=== PATIENT | female | born 1950 | race American Indian/Alaskan Native ===

== ENCOUNTER 2017-03-16 17:57 | Emergency (ER) | payer MEDICARE ==
[2017-03-16 18:12] VITALS: BP 149/74
[2017-03-16] MEDS ORDERED: TYLENOL PO ONE (18:29)
--- NOTE | 2017-03-16 18:29 | Emergency Department Report ---
Chief Complaint: Neck Pain/Injury Stated Complaint: NECK PAIN Time Seen by Provider: 03/16/17 18:27 - HPI History of Present Illness: Neck pain for 2 days to left lateral neck. Shooting pain and possible worse w / movement, thinks she may have slept wrong but started hurting worse after she fell on it., no focal neuro c/o, no visual or speech c/o, no fever., no n/v. - Exam Vital Signs: Vital Signs 03/16/17 18:09 Temperature 98 F Pulse Rate 97 H Respiratory 18 Rate Blood Pressure 149/74 O2 Sat by Pulse 98 Oximetry Physical Exam: Afebrile awake and alert and oriented 3 pain to left lateral neck ?worse with movement no midline pain or tenderness question of tenderness to left temporal area, collar placed given fall, ct/labs ordered. MSE screening note: Focused history and physical exam performed. Due to findings the following was ordered: Patient to main ED for further evaluation of neck pain possible headache left facial pain. ED Disposition for MSE Condition: Stable Referrals: PRIMARY CARE, [Primary Care Provider] - 3-5 Days
[2017-03-16 18:47] LABS: Basophils % (Auto) 1.4 % (0.0-1.8); Eosinophils % (Auto) 1.9 % (0.0-4.3); Hematocrit 42.8 % (30.3-42.9); Mean Corpuscular HGB Conc 33 % (30-34); Mean Corpuscular Hemoglobin 28 pg (28-32); Mean Corpuscular Volume 84 fl (79-97); Platelet Count 312 K/mm3 (140-440); Red Cell Distribution Width 13.1 % (13.2-15.2); White Blood Count 8.6 K/mm3 (4.5-11.0)
[2017-03-16 19:07] LABS: Alanine Aminotransferase 16 units/L (7-56); Albumin 4.5 g/dL (3.9-5); Albumin/Globulin Ratio 1.6 %; Alkaline Phosphatase 71 units/L (35-129); Anion Gap 17 mmol/L; BUN/Creatinine Ratio 19; Blood Urea Nitrogen 17 mg/dL (7-17); Carbon Dioxide 32 mmol/L (22-30); Glucose 169 mg/dL (65-100); Potassium 3.8 mmol/L (3.6-5.0); Sodium 142 mmol/L (137-145); Total Protein 7.3 g/dL (6.3-8.2)
[2017-03-16 19:10] LABS: Erythrocyte Sedimentation Rate 13 mm/Hr (0-20)
--- NOTE | 2017-03-16 19:20 | Cat Scan Report ---
FINAL REPORT PROCEDURE: CT head without contrast. TECHNIQUE: Computerized tomography of the head was performed without contrast material. HISTORY: Patient fell, head injury. COMPARISON: No prior studies are available for comparison. FINDINGS: The ventricles are normal in size. There may be a subtle old lacunar infarct in the right external capsule. The connelly matter and white matter are otherwise normal. There are no mass lesions. There is no intracranial hemorrhage. There are no signs of acute infarction. The calvarium appears intact. The mastoid air cells are clear. There is mucosal thickening in both maxillary sinuses. There may be an old left orbital fracture. IMPRESSION: No evidence of acute disease.
--- NOTE | 2017-03-16 19:35 | Cat Scan Report ---
FINAL REPORT PROCEDURE: CT cervical spine without contrast. TECHNIQUE: Computerized tomography of the cervical spine was performed from the skull base to T1 without contrast material. HISTORY: Neck injury, neck pain. COMPARISON: No prior studies are available for comparison. FINDINGS: The cervical vertebrae have normal height and alignment. There are no fractures. There is no subluxation. There is degenerative disc space narrowing throughout the cervical spine. There are small anterior and posterior vertebral body osteophytes. The spinal canal appears adequately patent. There is osteoarthritis involving many of the facet joints. There is moderate bilateral neural foraminal narrowing at C3-4. There is mild bilateral neural foraminal narrowing at C4-5. IMPRESSION: Degenerative disease as described. No evidence of acute cervical spine injury.
--- NOTE | 2017-03-16 20:24 | Emergency Department Report ---
ED Neck Pain HPI Chief Complaint: Neck Pain/Injury Stated Complaint: NECK PAIN Time Seen by Provider: 03/16/17 18:27 Duration: 2 Days Neck Pain Location: Lateral Neck Severity: severe Mechanism: Fall (fell last night from rolling chair) Symptoms: Yes Pain with Movement, Yes Previous History (neck pain for years), No Radiation to Left Upper Ext, No Radiation to Right Upper Ext, No Numbness, No Weakness Other History: This is a 66 y.o. female, presents with neck pain and headache x 2 days. Patient states she fell from a rolling chair last night. She was reaching to answer the phone and fell from the chair. States she feel like her head is about to explode and the pain is coming from the right side of her neck going up to the top of her head. It is consistent, dull, aching pain. Pain is 10 /10 on pain scale. Denies visual change, chest pain, wheezing, and . History of COPD on 2L home oxygen. ED Review of Systems ROS: Stated complaint: NECK PAIN Other details as noted in HPI Constitutional: no symptoms reported, see HPI. denies: chills, diaphoresis, fever, malaise, weakness ENT: as per HPI. denies: ear pain, throat pain, dental pain, hearing loss, epistaxis, congestion Respiratory: no symptoms reported, see HPI, SOB with exertion. denies: cough, orthopnea, shortness of breath, SOB at rest, stridor, wheezing Cardiovascular: as per HPI. denies: chest pain, palpitations, dyspnea on exertion, orthopnea, edema, syncope, paroxysmal nocturnal dyspnea Neurological: as per HPI, headache. denies: weakness, numbness, paresthesias, confusion, abnormal gait, vertigo Psychiatric: as per HPI. denies: anxiety, depression, auditory hallucinations, visual hallucinations, homicidal thoughts, suicidal thoughts ED Past Medical Hx - Past Medical History Hx Hypertension: Yes Hx Diabetes: Yes Hx COPD: Yes (ON HOME 02) - Social History Smoking Status: Never Smoker Substance Use Type: None - Medications Home Medications: Home Medications Medication Instructions Recorded Confirmed Last Taken Type Ibuprofen 800 mg PO Q6HR PRN 7 Days #28 03/16/17 Unknown Rx tablet Prednisone [predniSONE 5 mg (6-Day 5 mg PO .TAPER #1 tab.ds.pk 03/16/17 Unknown Rx Pack, 21 Tabs)] tiZANidine [Zanaflex] 4 mg PO TID 10 Days #30 tablet 03/16/17 Unknown Rx Neck Pain Exam - Exam General: Vital signs noted. No distress. Alert and acting appropriately. HEENT: No Facial Pain, No Scalp Tenderness, No Contusion, No Abrasion, No Laceration Neck Pain: Yes Right Paraspinal Tenderness, Yes Left Paraspinal Tenderness, Yes Pain with Rotation Right (30 ), Yes Pain with Rotation Left (not tolerated), Yes Pain with Extension (not tolerated), Yes Pain with Flexion (30), Yes pain with R Lateral Flexion, Yes Pain with L Lateral Flexion, No Midline Tenderness, No Right Trapezius Tenderness, No Left Trapezius Tenderness Chest: No Clear Lung Sounds (rhonchi on RML), No Pain with Respirations Heart: Yes Regular, No Murmur Back: No Thoracic Tenderness, No Lumbar Tenderness Neuro: Yes Normal Reflexes, No Numbness, No Weakness, No Radicular Deficits ED Course Vital Signs 03/16/17 03/16/17 18:09 18:45 Temperature 98 F Pulse Rate 97 H Respiratory 18 20 Rate Blood Pressure 149/74 O2 Sat by Pulse 98 Oximetry ED Medical Decision Making - Lab Data Result diagrams: 03/16/17 18:37 03/16/17 18:37 - Radiology Data Radiology results: image reviewed FINDINGS: The ventricles are normal in size. There may be a subtle old lacunar infarct in the right external capsule. The connelly matter and white matter are otherwise normal. There are no mass lesions. There is no intracranial hemorrhage. There are no signs of acute infarction. The calvarium appears intact. The mastoid air cells are clear. There is mucosal thickening in both maxillary sinuses. There may be an old left orbital fracture. IMPRESSION: No evidence of acute disease. FINDINGS: The cervical vertebrae have normal height and alignment. There are no fractures. There is no subluxation. There is degenerative disc space narrowing throughout the cervical spine. There are small anterior and posterior vertebral body osteophytes. The spinal canal appears adequately patent. There is osteoarthritis involving many of the facet joints. There is moderate bilateral neural foraminal narrowing at C3-4. There is mild bilateral neural foraminal narrowing at C4-5. IMPRESSION: Degenerative disease as described. No evidence of acute cervical spine injury. Critical care attestation.: If time is entered above; I have spent that time in minutes in the direct care of this critically ill patient, excluding procedure time. ED Disposition Clinical Impression: Degenerative disc disease, cervical Neck muscle strain Qualifiers: Encounter type: initial encounter Qualified Code(s): S16.1XXA - Strain of muscle, fascia and tendon at neck level, initial encounter Disposition: TO HOME OR SELFCARE Is pt being admited?: No Does the pt Need Aspirin: No Condition: Stable Instructions: Cervical Spine Strain (ED), Cervical Radiculopathy (ED) Additional Instructions: Avoid using soft collar, may prolong immobilization and slow healing. Perform rotational exercises 10 times per hour. Prescriptions: Ibuprofen 800 mg PO Q6HR PRN 7 Days #28 tablet PRN Reason: Pain Prednisone [predniSONE 5 mg (6-Day Pack, 21 Tabs)] 5 mg PO .TAPER #1 tab.ds.pk tiZANidine [Zanaflex] 4 mg PO TID 10 Days #30 tablet Referrals: PRIMARY CARE, [Primary Care Provider] - 3-5 Days Time of Disposition: 21:36 Print Language: DANISH
[2017-03-16] MEDS ORDERED: TORADOL IM ONE (21:05)
[2017-03-16] MEDS ORDERED: PHENERGAN PO ONE (21:05)
== END 2017-03-16 21:43 | disposition home or self-care (01) ==
LOC: ED 17:57
DX: S16.1XXA Strain of muscle, fascia and tendon at neck level, initial encounter (principal); M50.30 Other cervical disc degeneration, unspecified cervical region; I10 Essential (primary) hypertension; E11.9 Type 2 diabetes mellitus without complications; J44.9 Chronic obstructive pulmonary disease, unspecified; Z88.0 Allergy status to penicillin; W07.XXXA Fall from chair, initial encounter; Y93.89 Activity, other specified; Y92.89 Other specified places as the place of occurrence of the external cause; Y99.8 Other external cause status
CPT/HCPCS: 36415; 70450; 72125; 80053; 85025; 85652; 96372; 99284; J1885; Q0169

== ENCOUNTER 2020-07-05 19:34 | Observation (INO) | payer MEDICARE ==
[2020-07-05] MEDS ORDERED: methylPREDNISolone Sod Succinate 125 MG/2 ML INJ IV ONE (20:33)
[2020-07-05] MEDS ORDERED: MAGNESIUM SULFATE 2 GM/50 ML BAG IV ONE (20:33)
[2020-07-05] MEDS ORDERED: IPRATROPIUM 0.02% NEBU 2.5 ML IH ONE (20:33)
[2020-07-05] MEDS ORDERED: ALBUTEROL 2.5 MG/3 ML NEBU IH ONE (20:33)
--- NOTE | 2020-07-05 20:39 | Emergency Department Report ---
ED Shortness of Breath HPI - General Chief Complaint: Dyspnea/Respdistress Stated Complaint: RESPIRATORY DISTRESS Time Seen by Provider: 07/05/20 20:31 Source: patient, EMS Mode of arrival: Stretcher Limitations: No Limitations - History of Present Illness Initial Comments: Patient is a 70-year-old female that presents emergency room with complaints of shortness of breath and difficulty breathing. Patient states her symptoms started a week ago. Patient states her symptoms are worsening. Patient states she has been treating her symptoms at home with increased nebulizer use and increased oxygen. They states she is normally on 2 L and she is requiring 6 and 7 L in order to maintain a sat above 88. Patient denies chest pain. Patient denies fever or chills. Patient complains of dry cough. Patient states her symptoms are better with rest and worse with exertion. Patient denies recent travel. Patient denies recent international travel. Patient denies exposure to the novel coronavirus. Patient denies sick contacts. Patient denies fever and chills. Patient denies loss of smell. patient denies diarrhea. Patient denies coming in contact with anybody with symptoms of the novel coronavirus. MD Complaint: shortness of breath, cough -: Sudden Severity: severe Consistency: constant Improves With: rest Worsens With: exertion Known History Of: COPD Associated Symptoms: cough Treatments Prior to Arrival: oxygen, bronchodilator - Related Data Home Oxygen Therapy: Yes Home Oxygen Amount: 2 Liters Previous Rx's Medication Instructions Recorded Last Taken Type Ibuprofen [Ibuprofen 800] 800 mg PO Q6HR PRN 7 Days #28 03/16/17 Unknown Rx tablet Prednisone [predniSONE 5 mg (6-Day 5 mg PO .TAPER #1 tab.ds.pk 03/16/17 Unknown Rx Pack, 21 Tabs)] tiZANidine [Zanaflex 4mg TAB] 4 mg PO TID 10 Days #30 tablet 03/16/17 Unknown Rx Allergies Allergy/AdvReac Type Severity Reaction Status Date / Time Penicillins Allergy Swelling Verified 03/16/17 18:09 ED Review of Systems ROS: Stated complaint: RESPIRATORY DISTRESS Other details as noted in HPI Constitutional: denies: chills, fever Eyes: denies: eye pain, eye discharge, vision change ENT: denies: ear pain, throat pain Respiratory: see HPI, cough, shortness of breath. denies: wheezing Cardiovascular: denies: chest pain, palpitations Endocrine: no symptoms reported Gastrointestinal: denies: abdominal pain, nausea, diarrhea Genitourinary: denies: urgency, dysuria, discharge Musculoskeletal: denies: back pain, joint swelling, arthralgia Skin: denies: rash, lesions Neurological: denies: headache, weakness, paresthesias Psychiatric: denies: anxiety, depression Hematological/Lymphatic: denies: easy bleeding, easy bruising ED Past Medical Hx - Past Medical History Previous Medical History?: Yes Hx Hypertension: Yes Hx Diabetes: Yes Hx COPD: Yes (ON HOME 02) - Surgical History Past Surgical History?: No - Family History Family history: no significant - Social History Smoking Status: Never Smoker Substance Use Type: None - Medications Home Medications: Home Medications Medication Instructions Recorded Confirmed Last Taken Type Ibuprofen [Ibuprofen 800] 800 mg PO Q6HR PRN 7 Days #28 03/16/17 Unknown Rx tablet Prednisone [predniSONE 5 mg (6-Day 5 mg PO .TAPER #1 tab.ds.pk 03/16/17 Unknown Rx Pack, 21 Tabs)] tiZANidine [Zanaflex 4mg TAB] 4 mg PO TID 10 Days #30 tablet 03/16/17 Unknown Rx ED Physical Exam - General Limitations: No Limitations General appearance: alert, in no apparent distress - Head Head exam: Present: atraumatic, normocephalic - Eye Eye exam: Present: normal appearance - ENT ENT exam: Present: mucous membranes moist - Neck Neck exam: Present: normal inspection - Respiratory Respiratory exam: Present: respiratory distress, wheezes, accessory muscle use - Cardiovascular Cardiovascular Exam: Present: regular rate, normal rhythm. Absent: systolic murmur, diastolic murmur, rubs, gallop - GI/Abdominal GI/Abdominal exam: Present: soft, normal bowel sounds - Extremities Exam Extremities exam: Present: normal inspection - Back Exam Back exam: Present: normal inspection - Neurological Exam Neurological exam: Present: alert, oriented X3 - Psychiatric Psychiatric exam: Present: normal affect, normal mood - Skin Skin exam: Present: warm, dry, intact, normal color. Absent: rash ED Course Vital Signs 07/05/20 07/05/20 21:20 21:59 Pulse Rate 102 H Pulse Rate [ 105 H Bilateral] Respiratory 20 Rate Respiratory 20 Rate [Bilateral ] Blood Pressure 132/65 [Left] O2 Sat by Pulse 95 Oximetry - Reevaluation(s) Reevaluation #1: Patient was on 15 L of oxygen. Patient is currently on 5 L. Patient states he is feeling a little bit better. 07/05/20 21:35 Reevaluation #2: I discussed all results with patient. I discussed plan of care with patient. Patient agrees with plan of care and admission. Patient to be admitted to the hospitalist service. 07/05/20 22:15 - Consultations Consultation #1: Hospitalist consulted for admission. Hospitalist to admit patient. 07/05/20 22:15 ED Medical Decision Making - Lab Data Result diagrams: 07/05/20 20:38 07/05/20 20:38 - Radiology Data Radiology results: report reviewed, image reviewed interpreted by me: Chest x-ray: No pneumonia, no pneumothorax, no foreign body, no osseous findings, no acute findings CHEST 1 VIEW INDICATION / CLINICAL INFORMATION: Dyspnea. FINDINGS: SUPPORT DEVICES: None. HEART / MEDIASTINUM: No significant abnormality. LUNGS / PLEURA: No significant pulmonary or pleural abnormality. No pneumothorax. ADDITIONAL FINDINGS: No significant additional findings. IMPRESSION: 1. No acute findings. - Medical Decision Making Patient is a 70-year-old female that presents emergency room with complaints of worsening shortness of breath and COPD exacerbation and increased need of oxygen use. Patient found to have COPD exacerbation and respiratory failure. Patient's respiratory acute on chronic. Patient has an increased oxygen requirement. Patient found to have respiratory distress and increased work of breathing and wheezing. Patient given duo nebs, Solu-Medrol and magnesium. Patient responded well to treatment. Patient's work to breathe improved. Patient's oxygen need decreased. Patient still requires more than her normal amount of oxygen. Patient given azithromycin for the antibiotic coverage. Patient had labs done which were essentially unremarkable except for mild elevation of WBC. Patient admitted to the hospital service for further evaluation and treatment. Critical care time documented due to the multiple reassessments, prolonged time at the bedside, interpretation of diagnostics and labs. - Differential Diagnosis COPD exacerbation, hypoxia, respiratory failure, Critical Care Time: Yes Critical care time in (mins) excluding proc time.: 35 Critical care attestation.: If time is entered above; I have spent that time in minutes in the direct care of this critically ill patient, excluding procedure time. Critical Care Time: 35 minutes ED Disposition Clinical Impression: COPD exacerbation, Shortness of breath Respiratory failure Qualifiers: Chronicity: acute on chronic Respiratory failure complication: hypoxia Qualif ied Code(s): J96.21 - Acute and chronic respiratory failure with hypoxia Disposition: DC-09 OP ADMIT IP TO THIS HOSP Is pt being admited?: Yes Does the pt Need Aspirin: No Condition: Critical Instructions: Chronic Obstructive Pulmonary Disease (ED) Time of Disposition: 22:17
[2020-07-05 20:49] LABS: Basophils # (Auto) 0.1 K/mm3 (0.0-0.1); Eosinophils # (Auto) 0.3 K/mm3 (0.0-0.4); Eosinophils % (Auto) 2.2 % (0.0-4.3); Hematocrit 40.8 % (30.3-42.9); Hemoglobin 13.7 gm/dl (10.1-14.3); Lymphocytes # (Auto) 2.5 K/mm3 (1.2-5.4); Lymphocytes % (Auto) 18.8 % (13.4-35.0); Mean Corpuscular HGB Conc 34 % (30-34); Mean Corpuscular Volume 86 fl (79-97); Monocytes # (Auto) 0.6 K/mm3 (0.0-0.8); Monocytes % (Auto) 4.8 % (0.0-7.3); Platelet Count 333 K/mm3 (140-440); Red Blood Count 4.77 M/mm3 (3.65-5.03); Red Cell Distribution Width 13.7 % (13.2-15.2)
--- NOTE | 2020-07-05 20:53 | XRay Report ---
CHEST 1 VIEW INDICATION / CLINICAL INFORMATION: Dyspnea. FINDINGS: SUPPORT DEVICES: None. HEART / MEDIASTINUM: No significant abnormality. LUNGS / PLEURA: No significant pulmonary or pleural abnormality. No pneumothorax. ADDITIONAL FINDINGS: No significant additional findings. IMPRESSION: 1. No acute findings. Signer Name: Diaz Shanks MD Signed: 07/05/2020 8:48 PM Workstation Name: [id number]
[2020-07-05 21:15] LABS: Alanine Aminotransferase 22 units/L (7-56); Albumin 4.5 g/dL (3.9-5); BUN/Creatinine Ratio 17; Blood Urea Nitrogen 17 mg/dL (7-17); Calcium 9.2 mg/dL (8.4-10.2); Hemolysis Index 24
[2020-07-05] MEDS ORDERED: AZITHROMYCIN/NS 500 MG/250 ML 500 MG/250 ML BAG IV ONE (21:57)
[2020-07-05] MEDS ORDERED: ONDANSETRON 4 MG/2 ML INJ IV PRN (22:32)
[2020-07-05] MEDS ORDERED: ACETAMINOPHEN 325 MG TAB PO PRN (22:32)
[2020-07-05] MEDS ORDERED: MAGNESIUM HYDROXIDE (MOM) ORAL LIQD UDC PO PRN (22:32)
[2020-07-05] MEDS ORDERED: DEXTROSE 50% IN WATER (25GM) 50 ML SYRINGE IV PRN (22:32)
[2020-07-05] MEDS ORDERED: MORPHINE 2 MG/1 ML INJ IV PRN (22:32)
--- NOTE | 2020-07-05 22:45 | History and Physical Report ---
History of Present Illness Date of examination: 07/05/20 Date of admission: 07/05/20 22:17 Chief complaint: 07/05/2020 History of present illness: 70-year-old female with known history of COPD presenting to the emergency room today complaining of shortness of breath. Symptoms were said to have started about a week ago and has gotten worse today. She has been using an nebulizing treatments and inhalers more frequently at home. Patient is on oxygen 2 L at home and she has had increased oxygen requirement about 6 L lately. Oxygen saturation is said to be in the upper 80s. Patient denies any fever or chills, no chest pain or shortness of breath, no headache or dizziness, no diaphoresis. Patient has had some cough which is nonproductive. She denies any sick contacts and no recent travel. She denies any contact with any one daily COVID-19. Work-up in the emergency room today including labs and chest x-ray has been unremarkable except for mild leukocytosis. Patient has had nebulizing treatments and IV steroids with some improvement. Past History Past Medical History: COPD, diabetes, hypertension Past Surgical History: No surgical history Social history: smoking (Former Smoker) Family history: no significant family history Medications and Allergies Allergies Allergy/AdvReac Type Severity Reaction Status Date / Time Penicillins Allergy Swelling Verified 03/16/17 18:09 Home Medications Medication Instructions Recorded Confirmed Last Taken Type Ibuprofen [Ibuprofen 800] 800 mg PO Q6HR PRN 7 Days #28 03/16/17 Unknown Rx tablet Prednisone [predniSONE 5 mg (6-Day 5 mg PO .TAPER #1 tab.ds.pk 03/16/17 Unknown Rx Pack, 21 Tabs)] tiZANidine [Zanaflex 4mg TAB] 4 mg PO TID 10 Days #30 tablet 03/16/17 Unknown Rx Active Meds: Active Medications Azithromycin (Zithromax/Ns) 500 mg in 250 mls @ 250 mls/hr IV ONCE ONE; Protocol Stop: 07/05/20 22:56 Review of Systems Constitutional: no fever, no chills Ears, nose, mouth and throat: no nasal congestion, no sore throat Cardiovascular: no chest pain, no palpitations Respiratory: shortness of breath, no cough Gastrointestinal: no abdominal pain, no nausea, no vomiting, no diarrhea Genitourinary Female: no pelvic pain, no flank pain, no dysuria, no hematuria Musculoskeletal: no neck pain, no low back pain Integumentary: no rash, no pruritis Neurological: no headaches, no confusion Psychiatric: no anxiety, no depression Exam - Constitutional Vitals: Temp Pulse Resp BP Pulse Ox 102 H 20 132/65 95 07/05/20 21:59 07/05/20 21:59 07/05/20 21:59 07/05/20 21:59 General appearance: Present: no acute distress, well-nourished - EENT Eyes: Present: PERRL, EOM intact. Absent: scleral icterus ENT: hearing intact, clear oral mucosa, dentition normal - Neck Neck: Present: supple, normal ROM - Respiratory Respiratory effort: labored Respiratory: bilateral: wheezing (Few scattered wheezes bilaterally) - Cardiovascular Rhythm: regular Heart Sounds: Present: S1 & S2. Absent: systolic murmur, diastolic murmur, rub - Extremities Extremities: no ischemia, pulses intact, pulses symmetrical, No edema, normal temperature, normal color, Full ROM Peripheral Pulses: within normal limits - Abdominal General gastrointestinal: Present: soft, non-tender, non-distended, normal bowel sounds. Absent: mass - Integumentary Integumentary: Present: clear, warm, dry. Absent: rash - Musculoskeletal Musculoskeletal: strength equal bilaterally - Psychiatric Psychiatric: appropriate mood/affect, intact judgment & insight, memory intact, cooperative - Neurologic Neurologic: CNII-XII intact, no focal deficits, moves all extremities Results - Labs CBC & Chem 7: 07/06/20 04:18 07/05/20 20:38 Labs: Abnormal lab results 07/05/20 07/05/20 Range/Units 20:38 20:38 WBC 13.3 H (4.5-11.0) K/mm3 Seg Neutrophils % 73.2 H (40.0-70.0) % Seg Neutrophils # 9.8 H (1.8-7.7) K/mm3 Glucose 275 H (65-100) mg/dL Assessment and Plan - Patient Problems (1) COPD exacerbation Current Visit: Yes Status: Acute Plan to address problem: Patient commenced on nebulizing treatments and IV steroid. Will also place on oxygen to keep O2 saturation greater or equal to 92%. (2) Respiratory failure Current Visit: Yes Status: Acute Qualifiers: Chronicity: acute on chronic Respiratory failure complication: hypoxia Qualified Code(s): J96.21 - Acute and chronic respiratory failure with hypoxia Plan to address problem: Secondary to COPD exacerbation. We will place consult to pulmonology for evaluation. (3) Diabetes mellitus Current Visit: Yes Status: Acute Plan to address problem: We will monitor Accu-Cheks closely closely. (4) DVT prophylaxis Current Visit: Yes Status: Acute Plan to address problem: Patient placed on subcutaneous heparin. (5) Full code status Current Visit: Yes Status: Acute Plan to address problem: Patient is full code.
[2020-07-06] MEDS: INSULIN LISPRO 100 UNIT/ML SUB-Q SCH ×3 (03:38→12:18)
[2020-07-06 05:27] LABS: Hematocrit 38.3 % (30.3-42.9); Hemoglobin 12.8 gm/dl (10.1-14.3); Mean Corpuscular HGB Conc 34 % (30-34); Mean Corpuscular Volume 84 fl (79-97); Platelet Count 275 K/mm3 (140-440); Red Blood Count 4.55 M/mm3 (3.65-5.03); Red Cell Distribution Width 13.4 % (13.2-15.2)
[2020-07-06 05:30] LABS: Basophils % (Auto) 0.2 % (0.0-1.8); Lymphocytes # (Auto) 0.8 K/mm3 (1.2-5.4); Lymphocytes % (Auto) 5.8 % (13.4-35.0); Monocytes # (Auto) 0.1 K/mm3 (0.0-0.8); Monocytes % (Auto) 0.7 % (0.0-7.3)
[2020-07-06] MEDS: IPRATROPIUM/ALBUTEROL SULFATE 3 ML AMPUL.NEB IH SCH ×4 (05:40→12:27)
[2020-07-06] MEDS ORDERED: HEPARIN 5,000 UNIT/1 ML VIAL SUB-Q SCH (06:00)
[2020-07-06] MEDS ORDERED: methylPREDNISolone Sod Succinate 40 MG/1 ML INJ IV SCH (06:00)
[2020-07-06 06:33] LABS: Calcium 9.3 mg/dL (8.4-10.2)
[2020-07-06] MEDS ORDERED: tiZANidine TAB 4 MG TAB PO SCH (08:00)
[2020-07-06] MEDS ORDERED: HYDROcodone/HOMATROPINE 5-1.5MG /5 ML ORAL LIQD UNIT DOSE PO PRN (09:00)
[2020-07-06 09:26] VITALS: BP 143/82
--- NOTE | 2020-07-06 09:58 | Discharge Summary ---
Providers - Providers Date of Admission: 07/05/20 22:17 Attending physician: DARREN ANDRADE MD 07/05/20 22:33 Consult to Dietitian/Nutrition [CONS] Routine Physician Instructions: Reason For Exam: Reason for Consult: Diet education Primary care physician: ADULT EDUCATION PROFESSIONAL Hospitalization Reason for admission: Shortness of breath Condition: Stable Hospital course: 70-year-old female with known history of COPD presenting to the emergency room today complaining of shortness of breath. Symptoms were said to have started about a week ago and has gotten worse today. She has been using an nebulizing treatments and inhalers more frequently at home. Patient is on oxygen 2 L at home and she has had increased oxygen requirement about 6 L lately. Oxygen saturation is said to be in the upper 80s. Patient denies any fever or chills, no chest pain or shortness of breath, no headache or dizziness, no diaphoresis. Patient has had some cough which is nonproductive. She denies any sick contacts and no recent travel. She denies any contact with any one daily COVID-19. Work-up in the emergency room today including labs and chest x-ray has been unremarkable except for mild leukocytosis. Patient has had nebulizing treatments and IV steroids with some improvement. 07/06: Chest x-ray reviewed unremarkable patient with no fever she is down to 3 L which she says is at baseline. That she should schedule is between 2 and 3 L at home. Will going to walk around today also updated the daughter. Will give her some regular insulin to counteract the effect of the steroids. She wants to follow-up with her doctors at [place]. She is clinically stable at this point for discharge. I did discuss importance of returning to the hospital if her symptoms worsen. She reports that the cough is the most aggravating pain and causes her to have pain. But improved with some Hydromet Patient reports that she has lots of medications at home and no refills Acute on chronic hypoxic respiratory failure secondary to COPD exacerbation Acute bronchitis COPD exacerbation Diabetes mellitus with hyperglycemia Hypertension Obesity Atypical chest pain with costochondritis secondary to cough Disposition: DC/TX- HOME UNDER HOME [facility] Final Discharge Diagnosis (Prints w/discharge instructions): Acute on chronic hypoxic respiratory failure secondary to COPD exacerbation Time spent for discharge: 35-minute Core Measure Documentation - Palliative Care Palliative Care/ Comfort Measures: Not Applicable - Core Measures Any of the following diagnoses?: none Exam - Physical Exam Narrative exam: VITAL SIGNS: Reviewed. GENERAL: The patient appears normally developed, on oxygen vital signs as doc umented. HEAD: No signs of head trauma. EYES: Pupils are equal. Extraocular motions intact. EARS: Hearing grossly intact. MOUTH: Oropharynx is normal. NECK: No adenopathy, no JVD. CHEST: Chest with diminished breath sounds bilaterally. No wheezes, rales, or rhonchi. CARDIAC: Regular rate and rhythm. S1 and S2, without murmurs, gallops, or rubs. VASCULAR: No Edema. Peripheral pulses normal and equal in all extremities. ABDOMEN: Soft, non tender and non distended. No rebound or guarding, and no masses palpated. Bowel Sounds normal. MUSCULOSKELETAL: Good range of motion of all major joints. Extremities without clubbing, cyanosis or edema. NEUROLOGIC EXAM: Alert and oriented x 3 No focal sensory or strength deficits. Speech normal. Follows commands. PSYCHIATRIC: Mood normal. SKIN: detail exam as documented in skin assessment - Constitutional Vitals: Temp Pulse Resp BP Pulse Ox 97.8 F 88 16 143/82 95 07/06/20 07:46 07/06/20 08:43 07/06/20 08:43 07/06/20 07:46 07/06/20 07:46 Plan Activity: advance as tolerated, fall precautions Diet: low fat Special Instructions: record daily weights, record daily BP diary, record blood sugar diary Additional Instructions: Continue all other home medication including your diabetes medication Plan of Treatment: Follow-up with doctors at [facility] including pulmonology Follow up with: PRIMARY CARE, [Primary Care Provider] - 7 Days Prescriptions: HYDROcodone/HOMATROP 5-1.5 [HYDROcodone-Homatropin 5-1.5 mg per 5 ML] 10 ml PO Q6H PRN #100 ml PRN Reason: Cough levoFLOXacin [Levaquin TAB] 500 mg PO QDAY #3 tablet Prednisone [predniSONE 5 mg (6-Day Pack, 21 Tabs)] 5 mg PO .TAPER #1 tab.ds.pk
[2020-07-06] MEDS ORDERED: INSULIN REGULAR, HUMAN 100 UNITS/1 ML SUB-Q ONE (11:00)
== END 2020-07-06 13:50 | disposition home health service (06) ==
LOC: ED 19:34 → 4A 22:17
PROVIDERS: ADMIT Internal Medicine Geriatric Medicine; ATTEND Internal Medicine
DX: J96.21 Acute and chronic respiratory failure with hypoxia (principal); J44.1 Chronic obstructive pulmonary disease with (acute) exacerbation; I10 Essential (primary) hypertension; E11.65 Type 2 diabetes mellitus with hyperglycemia; D72.829 Elevated white blood cell count, unspecified; E66.9 Obesity, unspecified; R07.89 Other chest pain; M94.0 Chondrocostal junction syndrome [Tietze]; Z68.25 Body mass index [BMI] 25.0-25.9, adult; Z87.891 Personal history of nicotine dependence
CPT/HCPCS: 36415; 71045; 80048; 80053; 82140; 82962; 83735; 85025; 85610; 94640; 94644; 96365; 96367; 96372; 96375; 96376; 99291; G0378; J0456; J1644; J2405; J2920; J2930; J3475; J1815

== ENCOUNTER 2021-12-18 14:08 | Emergency (ER) | payer MEDICARE ==
--- NOTE | 2021-12-18 15:11 | XRay Report ---
CHEST 2 VIEWS INDICATION / CLINICAL INFORMATION: Shortness of breath. COMPARISON: 07/05/20. FINDINGS: SUPPORT DEVICES: None. HEART / MEDIASTINUM: The heart size and pulmonary vasculature are normal. LUNGS / PLEURA: The lungs are mildly hyperinflated, but clear. No pneumothorax. ADDITIONAL FINDINGS: No significant additional findings. IMPRESSION: Emphysema without acute abnormality. Signer Name: Fab Lee MD Signed: 12/18/2021 3:06 PM Workstation Name: [id number]
[2021-12-18] MEDS ORDERED: AZITHROMYCIN 250 MG TAB PO ONE (16:12)
[2021-12-18] MEDS ORDERED: predniSONE 20 MG TAB PO ONE (16:12)
[2021-12-18] MEDS ORDERED: IPRATROPIUM/ALBUTEROL SULFATE 3 ML AMPUL.NEB IH ONE (16:12)
[2021-12-18] MEDS ORDERED: guaiFENesin/CODEINE 100-10MG ORAL LIQD 5 ML PO ONE (16:13)
--- NOTE | 2021-12-18 16:19 | Emergency Department Report ---
- General Chief Complaint: Upper Respiratory Infection Stated Complaint: COUGH Time Seen by Provider: 12/18/21 15:27 Source: EMS, old records reviewed Mode of arrival: Stretcher Limitations: No Limitations - History of Present Illness Initial Comments: 71-year-old female the past medical history of COPD currently on 2 to 3 L of home oxygen presents to the hospital complaining of of persistent cough productive of green sputum and worsening shortness of breath for the past 3 weeks since she was discharged from [facility]. During her recent admission she tested negative for COVID and was treated for COPD with antibiotics and discharged on a remaining 2 days of prednisone and antibiotic. She feels that she needed additional days of treatment because she is continue to have persistent symptoms despite recent admission. Symptoms worse at night making her afraid to sleep due to increased dyspnea. Patient denies chest pain, fever, calf tenderness, leg edema. 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 [employer] - Related Data Previous Rx's Medication Instructions Recorded Last Taken Type Ibuprofen [Ibuprofen 800] 800 mg PO Q6HR PRN 7 Days #28 03/16/17 Unknown Rx tablet tiZANidine [Zanaflex 4mg TAB] 4 mg PO TID 10 Days #30 tablet 03/16/17 Unknown Rx HYDROcodone/HOMATROP 5-1.5 10 ml PO Q6H PRN #100 ml 07/06/20 Unknown Rx [HYDROcodone-Homatropin 5-1.5 mg per 5 ML] Prednisone [predniSONE 5 mg (6-Day 5 mg PO .TAPER #1 tab.ds.pk 07/06/20 Unknown Rx Pack, 21 Tabs)] levoFLOXacin [Levaquin TAB] 500 mg PO QDAY #3 tablet 07/06/20 Unknown Rx Azithromycin [Zithromax Z-JENNA] 1 dose PO DAILY 5 Days tab 12/18/21 Unknown Rx guaiFENesin/CODEINE [Robitussin AC] 10 ml PO Q6HR PRN #20 dose 12/18/21 Unknown Rx predniSONE [Deltasone] 40 mg PO QDAY 5 Days tab 12/18/21 Unknown Rx Allergies Allergy/AdvReac Type Severity Reaction Status Date / Time Penicillins Allergy Swelling Verified 03/16/17 18:09 ED Review of Systems ROS: Stated complaint: COUGH Other details as noted in HPI Comment: All other systems reviewed and negative ED Past Medical Hx - Past Medical History Hx Hypertension: Yes Hx Diabetes: Yes Hx COPD: Yes (ON HOME 02) - Social History Smoking Status: Former Smoker - Medications Home Medications: Home Medications Medication Instructions Recorded Confirmed Last Taken Type Ibuprofen [Ibuprofen 800] 800 mg PO Q6HR PRN 7 Days #28 03/16/17 Unknown Rx tablet tiZANidine [Zanaflex 4mg TAB] 4 mg PO TID 10 Days #30 tablet 03/16/17 Unknown Rx HYDROcodone/HOMATROP 5-1.5 10 ml PO Q6H PRN #100 ml 07/06/20 Unknown Rx [HYDROcodone-Homatropin 5-1.5 mg per 5 ML] Prednisone [predniSONE 5 mg (6-Day 5 mg PO .TAPER #1 tab.ds.pk 07/06/20 Unknown Rx Pack, 21 Tabs)] levoFLOXacin [Levaquin TAB] 500 mg PO QDAY #3 tablet 07/06/20 Unknown Rx Azithromycin [Zithromax Z-JENNA] 1 dose PO DAILY 5 Days tab 12/18/21 Unknown Rx guaiFENesin/CODEINE [Robitussin AC] 10 ml PO Q6HR PRN #20 dose 12/18/21 Unknown Rx predniSONE [Deltasone] 40 mg PO QDAY 5 Days tab 12/18/21 Unknown Rx ED Physical Exam - General Limitations: No Limitations - Other Other exam information: General: No acute distress Head: Atraumatic Eyes: normal appearance ENT: Moist mucous membranes Neck: Normal appearance, no midline tenderness Chest: Frequent cough noted. Diminished bilateral breath sounds with intermittent wheezing. Satting 100% on 1.5 L of oxygen CV: Regular rate and rhythm Abdomen: Soft, normal bowel sounds, nontender, nondistended, no rebound or guarding Back: Normal inspection Extremity: Normal inspection, full range of motion, no calf tenderness or leg Neuro: Alert O x 3, no facial asymmetry, speech clear, no gross motor sensory deficit Psych: Appropriate behavior Skin: No rash ED Course Vital Signs 12/18/21 12/18/21 14:15 16:48 Pulse Rate 92 H Pulse Rate [ 92 H Bilateral] Respiratory 18 Rate Respiratory 20 Rate [Bilateral ] Blood Pressure 138/80 [Left] O2 Sat by Pulse 98 Oximetry ED Medical Decision Making - Radiology Data Radiology results: report reviewed CHEST 2 VIEWS INDICATION / CLINICAL INFORMATION: Shortness of breath. COMPARISON: 07/05/20. FINDINGS: SUPPORT DEVICES: None. HEART / MEDIASTINUM: The heart size and pulmonary vasculature are normal. LUNGS / PLEURA: The lungs are mildly hyperinflated, but clear. No pneumothorax. ADDITIONAL FINDINGS: No significant additional findings. IMPRESSION: Emphysema without acute abnormality. - Medical Decision Making Patient presents to the hospital with persistent cough and shortness of breath last 3 weeks. Patient was treated with 2 duo nebs, prednisone, azithromycin, and Robitussin-AC with significant improvement in symptoms. Patient be dischar ged with meds and outpatient follow-up encouraged Critical Care Time: No Critical care attestation.: If time is entered above; I have spent that time in minutes in the direct care of this critically ill patient, excluding procedure time. ED Disposition Clinical Impression: Acute bronchitis with COPD Disposition: HOME / SELF CARE / HOMELESS Is pt being admited?: No Does the pt Need Aspirin: No Condition: Stable Instructions: Acute Bronchitis (ED), Chronic Obstructive Pulmonary Disease Additional Instructions: Take the medication as prescribed. 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 return if symptoms worsen as indicated by your discharge instructions. Prescriptions: predniSONE [Deltasone] 40 mg PO QDAY 5 Days tab guaiFENesin/CODEINE [Robitussin AC] 10 ml PO Q6HR PRN #20 dose PRN Reason: Cough Azithromycin [Zithromax Z-JENNA] 1 dose PO DAILY 5 Days tab Referrals: PRICILLA PROCTOR MD [Primary Care Provider] - 3-5 Days your [employer] software quality test [employer] [Other] - 3-5 Days Time of Disposition: 17:56
[2021-12-18 17:57] VITALS: BP 165/77
== END 2021-12-18 18:16 | disposition home or self-care (01) ==
LOC: ED 14:08
DX: J20.9 Acute bronchitis, unspecified (principal); J44.9 Chronic obstructive pulmonary disease, unspecified; I10 Essential (primary) hypertension; E11.9 Type 2 diabetes mellitus without complications; Z87.891 Personal history of nicotine dependence; Z79.899 Other long term (current) drug therapy; Z88.0 Allergy status to penicillin
CPT/HCPCS: 71046; 94640; 94644; 99284